=== PATIENT | male | born 1935 | race Caucasian/White ===

== ENCOUNTER → 2017-05-20 | Outpatient (CLI) | payer MEDICARE ==
--- NOTE | 2017-05-20 13:38 | EKG REPORT ---
SEVERITY:- ABNORMAL ECG - SINUS RHYTHM BORDERLINE LEFT AXIS DEVIATION NONSPECIFIC ST-T CHANGES- INFERIOR LEADS : Confirmed by: Nathaniel Glasgow MD 20-May-2017 13:38:33
--- NOTE | 2017-05-20 14:45 | RADIOLOGY REPORT (SQ) ---
EXAM DESCRIPTION: RIBS BILATERAL W/PA CXR COMPLETED DATE/TIME: 05/20/2017 12:42 pm REASON FOR STUDY: RIB PAIN COMPARISON: Chest films 01/22/2015, 06/12/2010 TECHNIQUE: Frontal view of the chest and additional views of the right and left ribs acquired. NUMBER OF VIEWS: PA chest Right and left rib detail four views LIMITATIONS: None. FINDINGS: FRONTAL CXR: Lungs are clear. No pleural effusion or pneumothorax. Cardiac silhouette si ze normal. Tortuous uncoiled thoracic aorta. No cardiomegaly. RIBS: No acute or old right rib fractures. Old healed left lower lateral 9th rib fracture. No acute left rib fractures. OTHER: No other significant finding. IMPRESSION: NO PNEUMOTHORAX. NO ACUTE DISPLACED RIB FRACTURES. COMMENT: SITE OF TRAUMA/COMPLAINT MARKED/STAMP COMPLETED: No TECHNICAL DOCUMENTATION: JOB ID: [id number] [employer]- All Rights Reserved Reading location - IP/workstation name: [email or web address]
== END ==
LOC: RAD 12:02
PROVIDERS: ATTEND Nurse Practitioner Family
DX: R07.81 Pleurodynia (principal)
CPT/HCPCS: 71111; 93005; 93010

== ENCOUNTER 2019-10-01 13:13 | Emergency (ER) | payer MEDICARE ==
--- NOTE | 2019-10-01 13:42 | ER Document Report ---
ED General - General Stated Complaint: POSSIBLE ALLERGIC REACTION Time Seen by Provider: 10/01/19 13:31 Primary Care Provider: REZA ANDREW FNP-C [NURSE PRACTITIONER] - Follow up as needed Mode of Arrival: Ambulatory Information source: Relative - son Dilip, Emergency Med Personnel Notes: 84-year-old male arrives from home where he had a shaking episode. EMS witnessed this and gave the patient 50 mg of Benadryl which stopped the patient shaking. Patient was recently changed on his psychiatric medicines. He is on lithium and galantamine as well as other medications. He is pleasantly confused but very cooperative in room #1. Mady AYALA had initially evaluated patient as well. According to staff patient was drenched in urine. There is no history of any seizure activity. Patient's son Dilip arrives around 1400 and advises he saw his father this morning shaking all over with arms legs chest buttocks. Patient had a similar seizure like activity 12 years ago when they were vacationing in [facility]. Patient and patient's family originally from [place] and thus the names. Patient recently was restarted on lithium around 10 days ago because he had been on Depakote for more than 10 years and was becoming more drowsy on this medicine. Several days after taking the lithium he began to have weak and shaking legs and hands. His son reports he is on lithium for bipolar disease as well. Patient was on lithium for around 30 years prior to going on Depakote. TRAVEL OUTSIDE OF THE [place] IN LAST 30 DAYS: No - HPI Onset: This morning Onset/Duration: Sudden Quality of pain: No pain Severity: None Pain Level: Denies Associated symptoms: None Exacerbated by: Denies Relieved by: Denies Similar symptoms previously: No Recently seen / treated by doctor: No - Related Data Allergies/Adverse Reactions: No Known Allergies Allergy (Verified 05/09/11 12:59) Past Medical History - General Information source: Emergency Med Personnel - Social History Smoking Status: Never Smoker Cigarette use (# per day): No Chew tobacco use (# tins/day): No Smoking Education Provided: No Frequency of alcohol use: None Drug Abuse: None Lives with: Family Family History: Reviewed & Not Pertinent Patient has suicidal ideation: No Patient has homicidal ideation: No - Past Medical History Cardiac Medical History: Reports: Hx Hypercholesterolemia Neurological Medical History: Reports: Hx Seizures GI Medical History: Reports: Hx Gastroesophageal Reflux Disease, Hx Hiatal Hernia Psychiatric Medical History: Reports: Hx Bipolar Disorder Past Surgical History: Reports: 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), Hx Cardiac Catheterization - stent x1, Hx Tonsillectomy - Immunizations Hx Pneumococcal Vaccination: 02/08/08 Review of Systems - Review of Systems Constitutional: No symptoms reported EENT: No symptoms reported Cardiovascular: No symptoms reported Respiratory: No symptoms reported Gastrointestinal: No symptoms reported Genitourinary: No symptoms reported Male Genitourinary: No symptoms reported Musculoskeletal: No symptoms reported Skin: No symptoms reported Hematologic/Lymphatic: No symptoms reported Neurological/Psychological: See HPI, Tremor Physical Exam - Vital signs Vitals: Temp Resp BP Pulse Ox 98.3 F 19 99/63 L 97 10/01/19 13:25 10/01/19 13:25 10/01/19 13:25 10/01/19 13:25 Interpretation: Hypotensive - HEENT Head: Normocephalic Eyes: Normal Conjunctiva: Normal Mouth/Lips: Normal Mucous membranes: Normal Pharynx: Normal Neck: Normal - Respiratory Respiratory status: No respiratory distress Chest status: Nontender Breath sounds: Normal Chest palpation: Normal - Cardiovascular Rhythm: Regular Heart sounds: Normal auscultation Murmur: No - Abdominal Inspection: Healed incision - GB mid abd periumbilical well healed scars - Rectal Prostate: Other - deferred - Genitourinary Scrotum: Other - deferred - Back Back: Normal - Extremities General upper extremity: Normal inspection General lower extremity: Normal inspection - Neurological Neuro grossly intact: Yes Cognition: Confused Speech: Normal Cranial nerves: Normal Motor strength normal: LUE, RUE, LLE, RLE Additional motor exam normals: 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 - Psychological Associated symptoms: Flat affect - Skin Skin Temperature: Warm Skin Moisture: Dry Course - Vital Signs Vital signs: Temp Pulse Resp BP Pulse Ox 98.3 F 19 94/68 L 97 10/01/19 13:25 10/01/19 15:01 10/01/19 15:01 10/01/19 15:01 - Laboratory Result Diagrams: 10/01/19 13:00 10/01/19 13:00 Laboratory results interpreted by me: 10/01/19 10/01/19 10/01/19 13:00 13:00 15:45 RBC 4.19 L Hgb 12.8 L RDW 15.2 H Chloride 108 H BUN 40 H Glucose 144 H Urine Ascorbic Acid 40 H Discharge - Discharge Clinical Impression: Tremor, Seizure, Dehydration Hypotension Qualifiers: Hypotension type: unspecified hypotension type Qualified Code(s): I95.9 - Hypotension, unspecified Disposition: HOME, SELF-CARE Additional Instructions: Follow-up with personal doctor this week return to ER as needed encourage fluids especially while taking lithium. Be sure to recheck your thyroid test on a three-month basis. Also your lithium test was 0.8 today. Will need a recheck on lithium levels as per your doctors orders. Prescriptions: Benztropine Mesylate [Cogentin 1 mg Tablet] 1 tab PO DAILY #30 tab Phenytoin Sodium Extended [Dilantin 100 mg Capsule.er] 100 mg PO Q8 #90 capsule Referrals: REZA ANDREW FNP-C [NURSE PRACTITIONER] - Follow up as needed
[2019-10-01 13:57] LABS: ABSOLUTE LYMPHOCYTES (AUTO) 1.3 10^3/uL (0.5-4.7); ABSOLUTE MONOCYTES (AUTO) 0.3 10^3/uL (0.1-1.4); ABSOLUTE NEUT (AUTO) 5.3 10^3/uL (1.7-8.2); BASOPHILS % (AUTO) 0.7 % (0-2); EOSINOPHILS % (AUTO) 0.5 % (0-6); HEMATOCRIT 38.4 % (37.9-51.0); HEMOGLOBIN 12.8 g/dL (13.5-17.0); MEAN CORPUSCULAR HEMOGLOBIN 30.4 pg (27.0-33.4); MEAN CORPUSCULAR HGB CONC 33.2 g/dL (32.0-36.0); MEAN CORPUSCULAR VOLUME 92 fl (80-97); MONOCYTES % (AUTO) 4.1 % (3-13); PLATELET COUNT 189 10^3/uL (150-450); RED BLOOD COUNT 4.19 10^6/uL (4.35-5.55); RED CELL DISTRIBUTION WIDTH 15.2 % (11.5-14.0); SEGMENTED NEUTROPHILS % (AUTO) 75.7 % (42-78); TOTAL CELLS COUNTED % (AUTO) 100 %; WHITE BLOOD COUNT 6.9 10^3/uL (4.0-10.5)
[2019-10-01 14:05] LABS: ALBUMIN 3.5 g/dL (3.5-5.0); ALKALINE PHOSPHATASE 58 U/L (38-126); ANION GAP 6 (5-19); ASPARTATE AMINO TRANSFERASE 35 U/L (17-59); BILIRUBIN,DIRECT 0.2 mg/dL (0.0-0.4); BILIRUBIN,TOTAL 0.5 mg/dL (0.2-1.3); BLOOD UREA NITROGEN 40 mg/dL (7-20); CALCIUM 9.6 mg/dL (8.4-10.2); CARBON DIOXIDE 24 mmol/L (22-30); CHLORIDE 108 mmol/L (98-107); GLUCOSE 144 mg/dL (75-110); LITHIUM 0.8 mEq/L (0.6-1.2); POTASSIUM 4.4 mmol/L (3.6-5.0); TOTAL PROTEIN 6.4 g/dL (6.3-8.2)
[2019-10-01 16:12] LABS: APPEARANCE,URINE CLEAR; BILIRUBIN,URINE NEGATIVE (NEGATIVE); COLOR,URINE YELLOW; GLUCOSE, URINE NEGATIVE (NEGATIVE); KETONES,URINE NEGATIVE (NEGATIVE); LEUKOCYTE ESTERASE,URINE NEGATIVE (NEGATIVE); NITRITE,URINE NEGATIVE (NEGATIVE); PROTEIN,URINE NEGATIVE (NEGATIVE); URINE SPECIFIC GRAVITY 1.019; UROBILINOGEN,URINE NEGATIVE mg/dL (<2.0)
[2019-10-01] MEDS ORDERED: NORMAL SALINE 1000 ML 1,000 ML IV ONE (16:17)
[2019-10-01] MEDS ORDERED: PHENYTOIN SODIUM INJ/PF 250 MG/5 ML SDV IV ONE (16:17)
[2019-10-01 16:54] VITALS: BP 94/68
--- NOTE | 2019-10-01 19:34 | EKG REPORT ---
SEVERITY:- ABNORMAL ECG - SINUS RHYTHM FIRST DEGREE AV BLOCK BORDERLINE LEFT AXIS DEVIATION : Confirmed by: Yuliya Estrada MD 01-Oct-2019 19:33:18
== END 2019-10-01 18:39 | disposition home or self-care (01) ==
LOC: ER 13:13
DX: R56.9 Unspecified convulsions (principal); R25.1 Tremor, unspecified; I95.9 Hypotension, unspecified; E86.0 Dehydration; F31.9 Bipolar disorder, unspecified; Z79.899 Other long term (current) drug therapy
CPT/HCPCS: 93005; 99284; 96361; 96374; 36415; 80178; 84443; 85025; 80053; 81001; 93010; J1165; J7030